=== PATIENT | female | born 1975 | race Caucasian/White ===

== ENCOUNTER 2019-07-19 16:03 | Emergency (ER) | payer OTHER ==
[~2019-07-19] VITALS: Ht 165.1 cm; Wt 120.0 kg
--- NOTE | 2019-07-19 16:33 | ED Lower Extremity ---
General Chief Complaint: Lower Extremity Stated Complaint: INJURED LEFT ANKLE Nursing Triage Note: Pt amb with to triage with c/o L ankle injury. Pt arrives utilizing crutches. Pt reports at 1400 on this day, an icebox was dropped on her L ankle. Pt reports she has applied ice et had ankle elevated since injury. Superficial abrasion noted to L ankle. A&OX4. Nursing Sepsis Screen: No Definite Risk Source: patient Exam Limitations: no limitations History of Present Illness Date Seen by Provider: Jul 19, 2019 Time Seen by Provider: 16:29 Initial Comments Left lateral ankle pain and swelling after twisting it while carrying an appliance down the stairs today about 2 PM. Onset: just prior to arrival Severity: moderate Pain/Injury Location: left ankle Method of Injury: twisted Modifying Factors: Worse With Movement Allergies and Home Medications Patient Home Medication List Home Medication List Reviewed: Yes Review of Systems Constitutional: see HPI EENTM: see HPI Respiratory: no symptoms reported Cardiovascular: no symptoms reported Genitourinary: no symptoms reported Musculoskeletal: see HPI Skin: no symptoms reported Psychiatric/Neurological: No Symptoms Reported Past Yywfswo-Iigrcy-Rpzywp Hx Patient Social History Recent Foreign Travel: No Contact w/Someone Who Travel: No Recent Infectious Disease Expo: No Physical Exam Vital Signs Vital Signs - First Documented 07/19/19 16:12 Temp 36.9 Pulse 105 Resp 18 B/P (MAP) 149/95 (113) Pulse Ox 98 O2 Delivery Room Air Capillary Refill : Less Than 3 Seconds Height, Weight, BMI Height: '" Weight: lbs. oz. kg; 44.00 BMI Method: General Appearance: WD/WN, no apparent distress HEENT: PERRL/EOMI, normal ENT inspection Respiratory: no respiratory distress, no accessory muscle use Hips: bilateral hip non-tender, bilateral hip normal inspection, bilateral hip normal range of motion Legs: bilateral leg non-tender, bilateral leg normal inspection, bilateral leg normal range of motion Knees: bilateral knee non-tender, bilateral knee normal inspection, bilateral knee normal range of motion Ankles: left ankle other (there is an abrasion over the lateral aspect distal fibula, there is no swelling over the lateral malleolus or medial malleolus nor is there tenderness to palpation at these locations, there is however tenderness to palpation over the Achilles tendon region posteriorly. She is able to plantar flex the foot) Neurologic/Psychiatric: alert, normal mood/affect, oriented x 3 Skin: normal color, warm/dry Progress/Results/Core Measures Results/Orders My Orders Orders - GISELA ENGLE APRN Ankle, Left, 3 Views (07/19/19 16:27) Vital Signs/I&O 07/19/19 16:12 Temp 36.9 Pulse 105 Resp 18 B/P (MAP) 149/95 (113) Pulse Ox 98 O2 Delivery Room Air Blood Pressure Mean: 113 Departure Impression Primary Impression: Strain of Achilles tendon Qualified Codes: S86.012A - Strain of left Achilles tendon, initial encounter Disposition: HOME, SELF-CARE Condition: Stable Departure-Patient Inst. Decision time for Depature: 16:32 Referrals: MICKEY LIZARRAGA APRN (PCP) Primary Care Physician Patient Instructions: Achilles Tendinopathy, Ankle Sprain Add. Discharge Instructions: 1. Tylenol and IV Profen for pain control 2. Wear the walking boot for the next week or until you can walk without significant pain. Follow-up with your doctor next week. All discharge instructions reviewed with patient and/or family. Voiced understanding. GISELA ENGLE APRN Jul 19, 2019 16:33
--- NOTE | 2019-07-19 16:52 | Diagnostic Imaging Report ---
CLINICAL HISTORY: Ankle pain. Injury. COMPARISON: None TECHNIQUE: 3 views of the left ankle. FINDINGS: There is no acute fracture or dislocation of the left ankle. Chronic appearing avulsion fracture seen off the posterior malleolus of the distal left tibia. The ankle mortise is well aligned. No lesions are seen in the tibial plafond or talar dome. Prominent bone spurs are seen off the calcaneus. No joint effusion is seen in the left ankle. Mild soft tissue edema is noted overlying the left ankle. IMPRESSION: 1. No acute fracture or dislocation is seen in the left ankle. Mild soft tissue edema is noted. Dictated by: Dictated on workstation # [id number]
[2019-07-19 17:18] VITALS: BP 136/86
--- OUTSIDE RECORDS SUMMARY | 2019-07-19 21:01 | XMS REPORT | Continuity of Care Document ---
Author Organization Unknown Address Unknown Phone Unavailable Allergies There is no data. Medications There is no data. Problems There is no data. Procedures There is no data. Results There is no data. Encounters ACCT No. Visit Date/Time Discharge Status Pt. Type Provider Facility Loc./Unit Complaint [id number] 07/19/2019 16:07:00 020 17:18:00 DIS Emergency [facility] INJURED LEFT ANKLE
== END 2019-07-19 17:18 | disposition home or self-care (01) ==
LOC: ER 16:07
DX: S86.012A Strain of left Achilles tendon, initial encounter (principal); X50.1XXA Overexertion from prolonged static or awkward postures, initial encounter
CPT/HCPCS: 73610